=== PATIENT | male | born 1950 | race Caucasian/White ===

== ENCOUNTER 2018-03-25 05:48 | Day surgery (SDC) | payer OTHER ==
[2018-03-25] MEDS ORDERED: ceFAZolin 2 GM/SWFI 2 GM/20 ML SYR IVP ONE (05:59)
[2018-03-25] MEDS ORDERED: ACETAMINOPHEN 500 MG TAB PO ONE (05:59)
[2018-03-25] MEDS ORDERED: LR 1,000 ML IV ONE (06:00)
[2018-03-25] MEDS ORDERED: ceFAZolin 2 GM/DEXTROSE 100 ML IV ONE (06:15)
[2018-03-25 06:26] LABS: PLATELET COUNT 179 10^3/uL (150-400)
[2018-03-25 06:37] LABS: INR 1.01 (0.83-1.16); PROTIME(PATIENT) 13.5 SEC (12.0-15.0)
[2018-03-25] MEDS ORDERED: LIDOCAINE 1% 300 MG/30 ML SDV ONE (06:52)
[2018-03-25] MEDS ORDERED: BUPIVACAINE 0.25% 30 ML SDV ONE (06:53)
[2018-03-25] MEDS ORDERED: THROMBIN (BOVINE) 5,000 UNIT VIAL TP ONE (06:53)
[2018-03-25] MEDS ORDERED: CHLORHEXIDINE GLUC HIBICLENS 118 ML BTL TP ONE (06:53)
[2018-03-25] MEDS ORDERED: GENTAMICIN SULFATE 80 MG/2 ML VIAL ONE ×2 (06:54)
[2018-03-25] MEDS ORDERED: SURGIFLO MATRIX KIT WITH THROMBIN 8 ML TP ONE (06:55)
--- NOTE | 2018-03-25 07:01 | PDHPUP ---
History & Physical Update H&P update statement: This history and physical update is based on an assessment of the patient which was completed after admission or registration (within 24 hours), but prior to the surgery/procedure. H&P update: H&P reviewed & patient examined, no change in patient's condition since H&P completed
--- NOTE | 2018-03-25 07:04 | PDANEPAE ---
ANE History of Present Illness Spinal cord stimulator generator ANE Past Medical History - Cardiovascular History Hx Hypertension: No Hx Arrhythmias: No Hx Chest Pain: No Hx Coronary Artery / Peripheral Vascular Disease: No Hx CHF / Valvular Disease: No Hx Palpitations: No - Pulmonary History Hx COPD: No Hx Asthma/Reactive Airway Disease: No Hx Recent Upper Respiratory Infection: No Hx Oxygen in Use at Home: No Hx Sleep Apnea: No Sleep Apnea Screening Result - Last Documented: Negative - Neurologic History Hx Cerebrovascular Accident: No Hx Seizures: No Hx Dementia: No - Endocrine History Hx Diabetes: No - Renal History Hx Renal Disorders: No - Liver History Hx Hepatic Disorders: No - Neurological & Psychiatric Hx Hx Neurological and Psychiatric Disorders: Yes Neurological / Psychiatric History Comment: LOW BACK PAIN-"BILAT" - Cancer History Hx Cancer: No - Congenital Disorder History Hx Congenital Disorders: No - GI History Hx Gastrointestinal Disorders: No - Other Health History Other Health History: NONE - Chronic Pain History Chronic Pain: Yes - Surgical History Prior Surgeries: "TEMPORARY"SPINAL CORD STIM -02-24-18. L SHOULDER;. R SHOULDER; . LUMBAR FUSION L3/L4,L4/L5,L5/S1 '14; ANE Review of Systems Review of Systems: - Exercise capacity METS (RN): 4 METS ANE Patient History - Allergies Allergies/Adverse Reactions: No Known Allergies Allergy (Unverified 03/15/18 12:32) - Home Medications Home Medications: Clonidine 03/15/18 [Last Taken 03/25/18] Oxycodone HCl 03/15/18 [Last Taken 03/25/18 04:00] Oxycontin 03/15/18 [Last Taken 03/24/18 20:00] Turmeric 03/16/18 [Last Taken 1 Week Ago ~03/18/18] - NPO status NPO Since - Liquids (Date): 03/25/18 NPO Since - Liquids (Time): 04:00 NPO Since - Solids (Date): 03/24/18 NPO Since - Solids (Time): 16:30 - Anes Hx Anes Hx: no prior problems - Smoking Hx Smoking Status: Former smoker ANE Labs/Vital Signs - Labs Result Diagrams: 03/25/18 06:15 03/25/18 06:15 - Vital Signs Blood Pressure: 114/77 Heart Rate: 65 Respiratory Rate: 14 O2 Sat (%): 93 Height: 182.88 cm Weight: 88.451 kg ANE Physical Exam - Airway Neck exam: decreased ROM Mallampati Score: Class 1 Mouth exam: normal dental/mouth exam - Pulmonary Pulmonary: no respiratory distress, no rales or rhonchi - Cardiovascular Cardiovascular: regular rate and rhythym, no murmur, rub, or gallop ANE Anesthesia Plan Anesthesia Plan: MAC
[2018-03-25] MEDS ORDERED: fentaNYL 250 MCG/5 ML INJ ONE (07:11)
[2018-03-25] MEDS ORDERED: PROPOFOL 200 MG/20 ML VIAL ONE (07:11)
[2018-03-25] MEDS ORDERED: MIDAZOLAM 2 MG/2 ML VIAL ONE (07:27)
[2018-03-25] MEDS ORDERED: fentaNYL 100 MCG/2 ML INJ ONE (08:26)
[2018-03-25] MEDS ORDERED: oxyCODONE IR 5 MG TAB PO PRN ×2 (09:14→09:19)
[2018-03-25] MEDS ORDERED: ONDANSETRON DISINTEGRATING 4 MG TAB PO PRN (09:14)
--- NOTE | 2018-03-25 09:17 | POSTOPPROG ---
Post Op Note Date of Operation: 03/25/18 Surgeon: Paula Driver Child Development Specialist: Dr. Maria Victoria Hauser Anesthesia: IV Sedation, Local (Specify) Pre-op Diagnosis: Chronic pain Post-op Diagnosis: Chronic pain Procedure: Implant of percutaneous spinal cord stimulator leads and generator Inf/Abcess present in the surg proc area at time of surgery?: No Depth: Superfical (Skin SQ) EBL: Minimal Plan Plan: 67 yo male s/p implant of percutaneous SCS leads and generator to the right hip - neuro checks - pain control - advance diet as tolerated - dc home today Exam Awake. Alert Facial expression symmetrical Muscle strength full at 5/5 Sensation intact
[2018-03-25] MEDS ORDERED: fentaNYL 100 MCG/2 ML INJ IVP PRN (09:19)
[2018-03-25] MEDS ORDERED: ONDANSETRON 4 MG/2 ML VIAL IVP PRN (09:19)
[2018-03-25] MEDS ORDERED: HYDROmorphONE/DILAUDID 2 MG/ML INJ IVP PRN (09:19)
[2018-03-25] MEDS ORDERED: NALOXONE HCL 0.4 MG/ML INJ IVP PRN (09:19)
--- NOTE | 2018-03-25 09:20 | POSTANESTH ---
Post Anesthetic Evaluation Cardiovascular Status: Normal, Stable Respiratory Status: Normal, Stable Level of Consciousness/Mental Status: Can Participate in Eval Pain Control: Adequate, Prn Tx Ordered Nausea/Vomiting Control: Adequate, Prn Tx Ordered Complications Possibly Related to Anesthesia: None Noted (Plan DC home)
[2018-03-25 10:36] VITALS: BP 106/79
--- NOTE | 2018-03-25 11:41 | GOP ---
[f rep st] OPERATIVE REPORT DATE OF OPERATION: 03/25/2018 SURGEON: Maria Victoria Hauser DO PAPER MACHINE BACKTENDER: BARBARA Morris PREOPERATIVE DIAGNOSIS: 1. Chronic pain syndrome. 2. Failed back syndrome. POSTOPERATIVE DIAGNOSIS: 1. Chronic pain syndrome. 2. Failed back syndrome. PROCEDURE PERFORMED: 1. Anchoring of percutaneous spinal cord stimulator leads, Medtronic leads placed by Dr. Paula Gilmore am, and placement of Intellis generator to right hip. 2. Impedances. FINDINGS: SPECIMENS: None. ESTIMATED BLOOD LOSS: 10 mL. INDICATIONS: This is a 67-year-old male who had a successful spinal cord stimulator trial with Dr. Monica martini, and she asked for my assistance to anchor the leads and place the generator. He was identifie d, consented. Sites were marked. Brought to the operating room, anesthetized under local with MAC. Dr. Driver successfully placed the percutaneous leads, and I then anesthetized the incision around t he needles and the incision at the hip with 0.25% Marcaine with epinephrine and 1% lidocaine in a 50: 50 mixture. He had previously marked his belt line, so the hip incision was placed just inferior to this. An incision was made with a 10 blade around the needles. An x-ray revealed the leads had not migrated. The stylettes were removed. The Injex bumpy anchors were placed and deployed, and the jazmyn ds were sutured in with 2-0 silk stitch at 2 positions. We took another x-ray. It had not migrated. We then made an incision at the hip with a 10 blade and created a pocket with blunt dissection. Me ticulous hemostasis was obtained with bipolar cautery. We tunneled from the pocket to the lumbar inc ision and brought the leads down and out leaving a strain relief loop in the lumbar region, placed th e leads into the generator, and checking impedances, all impedances were good. Locked them into posi tion with a torque wrench, coiled the wires posterior to the generator, sutured the generator to the fascia with 2-0 silk stitch at 2 positions. We took another x-ray. There was no migration. We copi ously irrigated with over a liter of gentamicin-infused saline at both incisions. Both incisions wer e closed with 2-0 Vicryl pop-offs subcutaneous layer, 3-0 Vicryl pop-offs cutaneous layer, and 4-0 ru nning Monocryl and Steri-Strips at each incision. Both incisions were dressed with Xeroform gauze an d Medipore tape. Patient tolerated procedure well. No complications. DESCRIPTION OF PROCEDURE: FLUIDS: Per anesthesia record. URINE OUTPUT: None. DRAINS: None. COMPLICATIONS: None. /[id number]/MODL
--- NOTE | 2018-03-26 09:00 | GOP ---
[f rep st] OPERATIVE REPORT DATE OF OPERATION: 03/25/2018 SURGEON: Paula Driver MD PREOPERATIVE DIAGNOSIS: 1. Chronic pain syndrome. 2. Post lumbar laminectomy syndrome. POSTOPERATIVE DIAGNOSIS: PROCEDURE PERFORMED: Fluoroscopically-guided spinal cord stimulator lead implant bilaterally for per manent placement. FINDINGS: INDICATIONS: The patient is a very pleasant 67-year-old gentleman who has had long-standing chronic pain across his lower back, with radiation into his buttocks. He underwent a spinal cord stimulator trial on 02/24/2018, and that provided him with 70% reduction of his pain. He was able to walk for l onger distances and stand for a longer period of time with significant improvement of his pain. Give n his greater than 50% reduction of pain during the trial phase, he is now advanced to the second sta ge of permanent implantation. The implantation of the spinal cord stimulator leads will be by Dr. Me maryam Driver. The placement of the generator pocket and securing of the leads will be performed by Dr Dorcas Hauser. DESCRIPTION OF PROCEDURE: The patient was placed in the prone position. His back was prepped and dr aped in the usual sterile fashion. The skin was localized over the L1-2 interspace with lidocaine 1% , 3 cc. A 14-gauge curved-tipped Touhy needle was then advanced down to the epidural space. Positiv e loss of resistance was obtained. No CSF was aspirated. No heme was aspirated. Subsequently, an 8 -contact spinal cord stimulator lead was then advanced under direct fluoroscopic guidance. This was advanced continuously in the cephalad direction until it was placed in the midline portion, traversin g the inferior portion of T8 down through the body of T10. The skin was localized adjacent to the or iginal site at the L1-2 level, again using lidocaine 1%, 3 cc. Second 14-gauge Tuohy needle was adva nced to the epidural space. Again, positive loss of resistance was obtained. No CSF was aspirated. No heme was aspirated. Second 8-contact spinal cord stimulator lead was then advanced through the s econd Tuohy needle with direct fluoroscopic guidance. The lead was advanced in a cephalad direction, again traversing the area from the inferior portion of T8 down through T10. This lead was directed adjacent to the initial lead and placed in a staggered formation. With the patient in an awake state , stimulation commenced. The patient reported distribution of sensation across his lower back and bu ttocks, which completely covered his usual pain pattern. The remainder of the procedure, which inclu ded securing and anchoring the electrodes, tunneling, and connecting and implanting the generator was performed by Dr. Maria Victoria Hauser. There were no complications. The patient tolerated the procedure we ll. /[id number]/MODL
== END 2018-03-25 10:55 | disposition home or self-care (01) ==
LOC: FSGY 05:48
PROVIDERS: ATTEND Neurological Surgery
PROC: B01B1ZZ Fluoroscopy of Spinal Cord using Low Osmolar Contrast (ICD-10-PCS; 2018-03-25)
PROC: 0JH70MZ Insertion of Stimulator Generator into Back Subcutaneous Tissue and Fascia, Open Approach (ICD-10-PCS; principal; 2018-03-25 07:15)
PROC: 00HV3MZ Insertion of Neurostimulator Lead into Spinal Cord, Percutaneous Approach (ICD-10-PCS; 2018-03-25 07:15)
DX: G89.4 Chronic pain syndrome (principal); M96.1 Postlaminectomy syndrome, not elsewhere classified; M54.5 Low back pain; Z87.891 Personal history of nicotine dependence; Z98.1 Arthrodesis status
CPT/HCPCS: C1778; C1787; C1820; J0690; J1580; J2250; J2704; J3010